=== PATIENT | male | born 1995 | race Caucasian/White ===

== ENCOUNTER 2020-04-02 15:41 | Emergency (ER) | payer OTHER ==
[~2020-04-02] VITALS: Ht 180.3 cm; Wt 72.6 kg
[~2020-04-02 15:41] MED LIST: KEFLEX500 M1 PO; TYLENOL WITH CO1 TA1 PO
[2020-04-02 16:37] VITALS: BP 127/82
== END 2020-04-02 16:37 | disposition home or self-care (01) ==
LOC: M.ERS 15:41
DX: S80.11XA Contusion of right lower leg, initial encounter (principal); X58.XXXA Exposure to other specified factors, initial encounter; Y93.89 Activity, other specified; Y92.89 Other specified places as the place of occurrence of the external cause; Y99.8 Other external cause status